=== PATIENT | female | born 1965 | race Caucasian/White ===

== ENCOUNTER 2016-07-16 14:19 | Emergency (ER) | payer MEDICAID ==
--- NOTE | 2016-07-16 15:17 | Diagnostic Imaging Report ---
Right knee (3 views) HISTORY: Pain, trauma No acute bony amenities. No fractures. Minimal medial joint space narrowing. A small sclerotic focus is noted in the proximal tibia consistent with an incidental benign "bone island". IMPRESSION: No acute abnormalities
--- NOTE | 2016-07-16 15:52 | ED Physician Chart ---
Chief Complaint/HPI - Patient Information Date Seen:: 07/16/16 Time Seen:: 14:30 Chief Complaint:: RIGHT KNEE INJURY History of Present Illness:: THIS IS A 51 YO FEMALE WHO STATES THAT SHE TRIPPED AND FELL YESTERDAY INJURING HER RIGHT KNEE. SHE IS NOW CONCERNED ABOUT THE PAIN AND STIFFNESS. SHE DENIES ANY PREVIOUS INJURY OF THE LEFT KNEE. SHE DENIES ALL OTHER INJURY. Allergies:: Allergies Allergy/AdvReac Type Severity Reaction Status Date / Time No Known Allergies Allergy Verified 07/16/16 14:28 Vitals:: Vital Signs - 8 hr 07/16/16 14:19 Temp 97.9 F HR 87 RR 16 BP 123/57 O2 Sat % 100 Historian:: Patient Review:: Nurse's Note Reviewed, Old Chart Reviewed Review of Systems - Review of Systems General/Constitutional: No fever, No chills, No weight loss, No weakness, No diaphoresis, No edema, No loss of appetite Skin: No skin lesions, No rash, No bruising Head: No headache, No light-headedness Eyes: No loss of vision, No pain, No diplopia ENT: No earache, No nasal drainage, No sore throat, No tinnitus Neck: No neck pain, No swelling, No thyromegaly, No stiffness, No mass noted Cardio Vascular: No chest pain, No palpitations, No PND, No orthopnea, No edema Pulmonary: No SOB, No cough, No sputum, No wheezing GI: No nausea, No vomiting, No diarrhea, No pain, No melena, No hematochezia, No constipation, No hematemesis G/U: No dysuria, No frequency, No hematuria Musculoskeletal: Bone or joint pain, No back pain, No muscle pain Endocrine: No polyuria, No polydipsia Psychiatric: No prior psych history, No depression, No anxiety, No suicidal ideation Hematopoietic: No bruising, No lymphadenopathy Allergic/Immuno: No urticaria, No angioedema Neurological: No syncope, No focal symptoms, No weakness, No paresthesia, No headache, No seizure, No dizziness, No confusion, No vertigo Past Medical History - Past Medical History Obtainable: Yes Past Medical History: HTN, DM, Thyroid disorder, Arthritis Family History: None Social History: Smoker, No Alcohol, Illicit Drug Use Surgical History: None Psychiatricy History: Depression Medication: Reviewed Family Medical History - Family Member Mother History Unknown: Yes Ethnicity: Non- Living Status: Unknown Hx Family Cancer: Yes Physical Exam - Physical Examination General/Constitutional: Awake, Well-developed, well-nourished, Alert, No distress, GCS 15, Non-toxic appearing, Ambulatory Head: Atraumatic Eyes: Lids, conjuctiva normal, PERRL, EOMI Skin: Nl inspection, No rash, No skin lesions, No ecchymosis, Well hydrated, No lymphadenopathy ENMT: External ears, nose nl, Nasal exam nl, Lips, teeth, gums nl Neck: Nontender, Full ROM w/o pain, No JVD, No nuchal rigidity, No bruit, No mass, No stridor Respiratory: Nl effort/Exclusion, Clear to Auscultation, No Wheeze/Rhonchi/Rales Cardio Vascular: RRR, No murmur, gallop, rubs, NL S1 S2 GI: No tenderness/rebounding/guarding, No organomegaly, No hernia, Normal BS's, Nondistended, No mass/bruits, No McBurney tenderness : No CVA tenderness Extremities: Full ROM, normal strength in all extremities, Normal digits & nails Other Extremities comments:: RIGHT KNEE ABRASION NOTED JUST ABOVE THE TIBIAL TUBEROUS AND THERE IS NO EFFUSION NOTED. THE ROM IS NORMAL. Neuro/Psych: Alert/oriented, DTR's symmetric, Normal sensory exam, Normal motor strength, Judgement/insight normal, Mood normal, Normal gait, No focal deficits Misc: normal gait, Normal back, No paraspinal tenderness Labs/Radiology/EKG Results - Radiology Results Results: RIGHT KNEE X-RAY = NO FRACTURE SEEN. ED Septic Shock - . Is Septic Shock (SBP<90, OR Lactate>4 mmol\L) present?: No - <6hrs of presentation: Vital Signs: Vital Signs - 8 hr 07/16/16 14:19 Temp 97.9 F HR 87 RR 16 BP 123/57 O2 Sat % 100 Reassessment (Disposition) - Reassessment Reassessment Condition:: Improved - Aftercare/Follow up Instructions Aftercare/Follow-Up Instructions:: Counseled pt regarding lab results/diagnosis & need follow up, Refer to Discharge Instructions, Counseled pt & family regarding lab results/diagnosis & need follow up - Patient Disposition Discharge/Transfer:: Home
== END 2016-07-16 16:12 | disposition home or self-care (01) ==
LOC: ER 14:19
DX: S89.91XA Unspecified injury of right lower leg, initial encounter (principal); E11.9 Type 2 diabetes mellitus without complications; I10 Essential (primary) hypertension; E07.9 Disorder of thyroid, unspecified; F17.200 Nicotine dependence, unspecified, uncomplicated; W01.0XXA Fall on same level from slipping, tripping and stumbling without subsequent striking against object, initial encounter; Y93.89 Activity, other specified; Y92.89 Other specified places as the place of occurrence of the external cause; Y99.8 Other external cause status
CPT/HCPCS: 73560-TC-RT; Z7502

== ENCOUNTER 2017-09-09 09:36 | Emergency (ER) | payer MEDICAID ==
--- NOTE | 2017-09-09 10:00 | ED Physician Chart ---
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 Pain, syncope, paresthesias, weakness, dizziness, bleeding, vertigo, or urinary s/s; pt's last tetanus shot: < 5 years; UTD; LNMP: pt states she is 5 years post-menopause; pt denies Allergies:: Allergies Allergy/AdvReac Type Severity Reaction Status Date / Time No Known Allergies Allergy Verified 07/16/16 14:28 Vitals:: Vital Signs - 8 hr 09/09/17 09:43 Temp 98.1 F HR 84 RR 15 BP 128/82 O2 Sat % 95 Historian:: Patient, EMS Review:: Nurse's Note Reviewed, Old Chart Reviewed, EMS run form Reviewed ED Review of Systems - Review of Systems General/Constitutional: No fever, No chills, No weight loss, No weakness, No diaphoresis, No edema, No loss of appetite Skin: No skin lesions, No rash, No bruising Head: No headache, No light-headedness Eyes: No loss of vision, No pain, No diplopia ENT: No earache, No nasal drainage, No sore throat, No tinnitus Neck: No neck pain, No swelling, No thyromegaly, No stiffness, No mass noted Cardio Vascular: No chest pain, No palpitations, No PND, No orthopnea, No edema Pulmonary: No SOB, No cough, No sputum, No wheezing GI: No nausea, No vomiting, No diarrhea, No pain, No melena, No hematochezia, No constipation, No hematemesis G/U: No dysuria, No frequency, No hematuria, No nacturia Strategy Manager: No vaginal discharge, No abnormal vaginal bleed, No contraction Musculoskeletal: No bone or joint pain, No back pain, No muscle pain Endocrine: No polyuria, No polydipsia Psychiatric: No prior psych history, No depression, No anxiety, No suicidal ideation, No homicidal ideation, No auditory hallucination, No visual hallucination Hematopoietic: No bruising, No lymphadenopathy Allergic/Immuno: No urticaria, No angioedema Neurological: No syncope, No focal symptoms, No weakness, No paresthesia, No headache, No seizure, No dizziness, No confusion, No vertigo ED Past Medical History - Past Medical History Obtainable: Yes Past Medical History: HTN Family History: HTN Social History: Non Smoker, No Alcohol, No Drug Use, Homeless Surgical History: None Psychiatricy History: None Medication: Reviewed Family Medical History - Family Member Mother History Unknown: Yes Ethnicity: Non- Living Status: Unknown Hx Family Cancer: Yes ED Physical Exam - Physical Examination General/Constitutional: Awake, Well-developed, well-nourished, Alert, No distress, GCS 15, Non-toxic appearing, Ambulatory Head: Atraumatic Eyes: Lids, conjuctiva normal, PERRL, EOMI Skin: Nl inspection, No rash, No skin lesions, No ecchymosis, Well hydrated, No lymphadenopathy Other Skin comments:: Right Knee Superficial Abrasion; no FBs; good NV functions; Full active ROMs; no tenderness; no FBs ENMT: External ears, nose nl, TM canals nl, Nasal exam nl, Lips, teeth, gums nl , Oropharynx nl, Tonsils nl Neck: Nontender, Full ROM w/o pain, No JVD, No nuchal rigidity, No bruit, No mass, No stridor Other Neck comments:: supple; no meningeal signs; no cervical tenderness; no bruits Respiratory: Nl effort/Exclusion, Clear to Auscultation, No Wheeze/Rhonchi/Rales Cardio Vascular: RRR, No murmur, gallop, rubs, NL S1 S2, Carotid/Femoral/Distal pulses equal bilaterally GI: No tenderness/rebounding/guarding, No organomegaly, No hernia, Normal BS's, Nondistended, No mass/bruits, No McBurney tenderness, Rectum exam nl Other GI comments:: no pulsatile masses : No CVA tenderness Extremities: Full ROM, normal strength in all extremities, No edema, Normal digits & nails Other Extremities comments:: Right Ankle: + tenderness upon all PROMs with no loss of ROMs; no ligament instability; DTRs: 2+ bilaterally; Gait: WNL; good motor, tendon, and sensory functions; good NV functions Neuro/Psych: Alert/oriented, DTR's symmetric, Normal sensory exam, Normal motor strength, Judgement/insight normal, Mood normal, Normal gait, No focal deficits Misc: Normal back, No paraspinal tenderness ED Labs/Radiology/EKG Results - Radiology Results Comments:: X_rays: ? Hairline DF Fracture; otherwise NAD/ no obvious Fx/Dislocations ED Assessment - Procedures Procedures:: Splint Applied to Right Ankle and Right Foot; Crutches Informed Consent: Procedure/risk/benefits explained by MD: Yes (no complications ; pt improved) ED Septic Shock - . Is Septic Shock (SBP<90, OR Lactate>4 mmol\L) present?: No - <6hrs of presentation: Vital Signs: Vital Signs - 8 hr 09/09/ 09:43 Temp 98.1 F HR 84 RR 15 BP 128/82 O2 Sat % 95 ED Reassessment (Disposition) - Reassessment Reassessment:: pt is asymptomatic upon discharge Reassessment Condition:: Improved - Diagnosis Diagnosis:: Dx: Right Ankle Pain; Right Ankle Fracure; Right Ankle Sprains and Strains; Right Foot Sprains and Stains; Right Knee Abrasion - Aftercare/Follow up Instructions Aftercare/Follow-Up Instructions:: Counseled pt regarding lab results/diagnosis & need follow up, Refer to Discharge Instructions, Counseled pt & family regarding lab results/diagnosis & need follow up - Patient Disposition Discharge/Transfer:: Home Condition at Disposition:: Stable, Improved (RTER prn if existing s/s reoccur and/or get worse and/or any other new s/s occur; X-Rays Instructions; ACIs given for all above Dx; Refer to Orthopedist/[email or web address]; F/U with PMD in one day or prn; RTER prn if concerned)
--- NOTE | 2017-09-09 11:35 | Diagnostic Imaging Report ---
Right ankle 3 views Indication: Trauma Comparison: Right foot x-ray the same day Findings: The lateral views limited due to positioning. Slight irregularity anterior tibial plafond is noted. Osteopenia is noted. Mild degenerative changes are noted. Diffuse subcutaneous edema is noted. Small accessory ossicles of the midfoot are noted. Impression: Limited lateral view due to positioning. Slight irregularity of the anterior tibial plafond is noted likely related to projection. Please correlate clinically. Otherwise no evidence of an acute fracture Diffuse subcutaneous edema, please correlate clinically. Osteopenia. In the setting of trauma, if clinical symptoms persist and there is continued concern for an occult fracture, follow up exams in 5-7 days is suggested.
--- NOTE | 2017-09-09 11:37 | Diagnostic Imaging Report ---
Right foot x-ray 3 views Indication: Trauma Comparison: Right ankle x-ray the same day Findings: Osteopenia is noted. No evidence of an acute bacterial or dislocation. Mild generalized soft tissue prominence is noted. Mild degenerative changes are noted, greatest at the first MTP joint. Accessory ossicles of the midfoot are noted. Impression: No evidence of an acute fracture. Generalized soft tissue prominence is noted, correlate clinically. Osteopenia. Mild degenerative changes. In the setting of trauma, if clinical symptoms persist and there is continued concern for an occult fracture, follow up exams in 5-7 days is suggested.
[2017-09-09] MEDS ORDERED: Triple Antibiotic 0.94 gm Pkt TP ONE (11:56)
--- NOTE | 2017-09-09 12:18 | Diagnostic Imaging Report ---
Right knee 3 views Indication: Trauma Comparison: 07/16/2016 Findings: A small bone island the proximal tibia is noted. There is evidence of old healed proximal fibular fracture. Mild degenerative changes are noted. No evidence of an acute fracture or joint effusion. Impression: No evidence of an acute fracture. Old healed proximal fibular fracture. In the setting of trauma, if clinical symptoms persist and there is continued concern for an occult fracture, follow up exams in 5-7 days is suggested.
== END 2017-09-09 12:25 | disposition home or self-care (01) ==
LOC: ER 09:36
DX: S82.891A Other fracture of right lower leg, initial encounter for closed fracture (principal); S80.211A Abrasion, right knee, initial encounter; I10 Essential (primary) hypertension; X50.1XXA Overexertion from prolonged static or awkward postures, initial encounter; Y93.01 Activity, walking, marching and hiking; Y92.89 Other specified places as the place of occurrence of the external cause; Y99.8 Other external cause status
CPT/HCPCS: 73562-TC-RT; 73610-RT-TC; 73630-TC-RT; Z7502